=== PATIENT | male | born 2005 | race Two or more races ===

== ENCOUNTER 2024-08-06 22:10 | Emergency (ER) | payer OTHER ==
[~2024-08-06] VITALS: Ht 167.6 cm; Wt 81.6 kg
[2024-08-06] MEDS ORDERED: [UNRECOGNIZED DRUG - REMARK] (23:09)
[2024-08-06] MEDS ORDERED: ZYRTEC10 M3 PO (23:09)
[2024-08-07] MEDS ORDERED: HYOSCYAMINE SULFATE 0.125 MG TAB.SUBL SL STA (00:43)
[2024-08-07] MEDS ORDERED: LACTOBACILLUS ACIDOPHILUS 1 CAP CAP PO STA (00:43)
[2024-08-07] MEDS ORDERED: 0.9 % SODIUM CHLORIDE 1,000 ML IV ONE (00:45)
[2024-08-07] MEDS ORDERED: HYOSCYAMINE SULFATE 0.125 MG TAB.SUBL ONE (01:43)
[2024-08-07] MEDS ORDERED: LACTOBACILLUS ACIDOPHILUS 1 CAP CAP PO ONE (01:43)
[2024-08-07 03:00] LABS: HEMATOCRIT 42.3 % (39.0-48.0); HEMOGLOBIN 14.4 g/dL (13-16.00); MEAN CELL VOLUME 85.8 fL (80.0-100.00); MEAN CORPUSCULAR HEMOGLOBIN 29.2 pg (27.00-32.0); PLATELET COUNT 221 K/uL (150-450); RED BLOOD COUNT 4.93 M/uL (4.00-6.00); RED CELL DISTRIBUTION WIDTH 12.8 % (11.5-14.5)
[2024-08-07 03:17] LABS: CALCIUM 9.2 mg/dL (8.5-10.1); CREATININE SERUM 1.08 mg/dL (0.70-1.30); GFR 87.17; POTASSIUM 3.84 mEq/L (3.5-5.1)
[2024-08-07] MEDS ORDERED: OSELTAMIVIR PHOSPHATE 75 MG CAPSULE PO STA (06:03)
[2024-08-07] MEDS ORDERED: PHENAGIL TABLE1 EACH PO (06:13)
[2024-08-07] MEDS ORDERED: ORASEP SPRAY30 ML MM (06:13)
[2024-08-07] MEDS ORDERED: OSEL75CA PO (06:13)
[2024-08-07] MEDS ORDERED: OSELTAMIVIR PHOSPHATE 75 MG CAPSULE PO ONE (06:25)
[2024-08-07 06:30] LABS: PH,URINE 5.5 (5.0-8.0); URINE APPEARANCE Clear; URINE BILIRRUBIN Negative (NEGATIVE); URINE BLOOD Negative; URINE COLOR Yellow; URINE GLUCOSE Negative (NEGATIVE); URINE LEUKOCYTE Negative; URINE NITRATE Negative; URINE PROTEIN 30 (NEGATIVE); URINE UROBILINOGEN 0.2 E.U./dl
[2024-08-07 06:35] LABS: URINE BACTERIA 29.3 uL (0.0-1933); URINE EPITHELIAL CELLS 11.8 uL (0.0-38.8); URINE WBC 10.4 uL (0.0-23.2)
[2024-08-07 06:45] LABS: URINE CAST 0.29 uL (0.0-1.40); URINE KETONE 40 (NEGATIVE)
== END 2024-08-07 06:29 ==
LOC: EMR PED 22:13 → ER 22:13 → EMR PED 23:00
PROVIDERS: General Practice
DX: J10.1 Influenza due to other identified influenza virus with other respiratory manifestations (principal); Z20.822 Contact with and (suspected) exposure to COVID-19

== ENCOUNTER 2024-10-04 05:59 | Inpatient (IN) | payer OTHER ==
[~2024-10-04] VITALS: Ht 167.6 cm; Wt 81.8 kg
[~2024-10-04 05:59] MED LIST: ORASEP SPRAY30 ML MM; OSEL75CA PO; PHENAGIL TABLE1 EACH PO; ZYRTEC10 M3 PO; [UNRECOGNIZED DRUG - REMARK]
--- NOTE | 2024-10-04 06:22 | NUR ---
PTE ALERTA Y ORIENTADO X3 QUIEN REFIERE VENIR POR VOMITOS DESDE HACE 1 SEMANA
[2024-10-04] MEDS ORDERED: FAMOTIDINE/PF 20 MG/2 ML VIAL IV ONE (08:00)
[2024-10-04] MEDS ORDERED: ONDANSETRON HCL 2 MG/ML VIAL IV ONE (08:00)
[2024-10-04] MEDS ORDERED: 0.9 % SODIUM CHLORIDE 1,000 ML IV ONE (08:00)
[2024-10-04 08:19] LABS: HEMATOCRIT 45.2 % (39.0-48.0); HEMOGLOBIN 15.3 g/dL (13-16.00); MEAN CELL VOLUME 84.5 fL (80.0-100.00); MEAN CORPUSCULAR HEMOGLOBIN 28.7 pg (27.00-32.0); PLATELET COUNT 352 K/uL (150-450); RED BLOOD COUNT 5.35 M/uL (4.00-6.00); RED CELL DISTRIBUTION WIDTH 12.3 % (11.5-14.5)
[2024-10-04] MEDS ORDERED: DEXTROSE 5 %-0.45 % SOD CHLORD 1,000 ML IV SCH ×3 (08:30→14:00)
[2024-10-04 09:00] LABS: BILIRUBIN TOTAL 0.62 mg/dL (0.3-1.2); CALCIUM 9.4 mg/dL (8.5-10.1); CREATININE SERUM 1.08 mg/dL (0.70-1.30); GFR 87.17; GLOBULINA 4.3 G/DL (2.4-3.5); POTASSIUM 3.64 mEq/L (3.5-5.1); TOTAL PROTEIN 8.3 gm/dL (6.4-8.2)
--- NOTE | 2024-10-04 09:08 | NUR ---
EVALUADO PTE. POR PERRY. CASTRODAD. SE ORIENTA SOBRE TRATAMIENTO Y MEDICAMENTOS LOS CUALES SE ADM. MARINA ORDEN MEDICA, MUESTRAS TOMADAS Y SE ENVIAN AL LABORATORIO Y SE LUZ PTE. EN RADHA CON BARRANDAS ELEVADAS ACOMPANADO DE FAMILIAR.
[2024-10-04 09:15] LABS: C-REACTIVE PROTEIN 0.43 MG/DL (0.00-0.29)
[2024-10-04] MEDS ORDERED: KETOROLAC TROMETHAMINE 15 MG VIAL IU SCH (09:23)
[2024-10-04] MEDS ORDERED: 0.9 % SODIUM CHLORIDE 1,000 ML IV SCH (09:30)
--- NOTE | 2024-10-04 09:32 | NUR ---
PTE. REFIERE CONTINUA CON DOLOR PERRY. CASTRODA RE-EVALUA PTE. SE ORIENTA SOBRE TRATAMIENTO Y MEDICAMENTO EL CUAL SE ADM. MARINA ORDEN MEDICA.
--- NOTE | 2024-10-04 10:43 | NUR ---
SE ENVIA PTE. A CT SCAN.
[2024-10-04 11:41] LABS: PH,URINE 5.5 (5.0-8.0); URINE APPEARANCE Clear; URINE BILIRRUBIN Negative (NEGATIVE); URINE BLOOD Negative; URINE COLOR Yellow; URINE GLUCOSE Negative (NEGATIVE); URINE KETONE Negative (NEGATIVE); URINE LEUKOCYTE Negative; URINE NITRATE Negative; URINE PROTEIN Negative (NEGATIVE); URINE UROBILINOGEN 0.2 E.U./dl; URINE WBC 3.7 uL (0.0-23.2)
[2024-10-04] MEDS ORDERED: FAMOTIDINE/PF 20 MG/2 ML VIAL IV SCH (11:52)
[2024-10-04] MEDS ORDERED: KETOROLAC TROMETHAMINE 30 MG VIAL IV PRN (12:00)
[2024-10-04 12:22] LABS: URINE BACTERIA 3.6 uL (0.0-1933); URINE EPITHELIAL CELLS 1.2 uL (0.0-38.8); URINE RBC 0.7 uL (0.0-20.8)
[2024-10-04 12:55] VITALS: BP 107/72
[2024-10-04] MEDS ORDERED: ONDANSETRON HCL 4 MG in 0.9 % SODIUM CHLORIDE 50 ML IV SCH (13:00)
--- NOTE | 2024-10-04 14:00 | NUR ---
DRA. SINGH RE-EVALUA PTE. Y ADMITE A SERVICIO DE DR. CALVILLO. SE ORIENTA SOBRE TRATAMIENTO, MEDICAMENTOS Y ADMISION ORDENES DE ADMISION TOMADAS, FAMILIAR HACE ARREGLOS DE ADMISION. MUESTRAS TOMADAS Y SE ENVIAN AL LABORATORIO. DIETA RENETTA Y TOLERADA. PTE. REFIERE SE SIENTE MEJOR Y SE LUZ PTE. BAJO OBSERVACION POR CAMBIO.
[2024-10-04 16:15] VITALS: BP 97/68; O2SAT 98
[2024-10-04] MEDS ORDERED: KETOROLAC TROMETHAMINE 30 MG VIAL IV SCH (17:00)
[2024-10-04] MEDS ORDERED: PANTOPRAZOLE SODIUM 40 MG/VIAL VIAL IV SCH (21:00)
[2024-10-05] VITALS: BP 116/80; O2SAT 99
[2024-10-05 06:22] LABS: HEMATOCRIT 39.1 % (39.0-48.0); HEMOGLOBIN 13.5 g/dL (13-16.00); MEAN CELL VOLUME 84.1 fL (80.0-100.00); MEAN CORPUSCULAR HGB CONC 34.4 g/dl (32.0-36.0); PLATELET COUNT 218 K/uL (150-450); RED BLOOD COUNT 4.65 M/uL (4.00-6.00); RED CELL DISTRIBUTION WIDTH 12.7 % (11.5-14.5)
[2024-10-05 07:03] LABS: BILIRUBIN TOTAL 1.05 mg/dL (0.3-1.2); CALCIUM 8.1 mg/dL (8.5-10.1); CREATININE SERUM 0.94 mg/dL (0.70-1.30); GFR 102.31; POTASSIUM 3.35 mEq/L (3.5-5.1)
[2024-10-05 08:37] VITALS: BP 111/74; O2SAT 98
[2024-10-05] MEDS ORDERED: ACETAMINOPHEN 500 MG GEL..CAP PO SCH (09:00)
[2024-10-05] MEDS ORDERED: ONDANSETRON HCL 4 MG in 0.9 % SODIUM CHLORIDE 50 ML IV PRN (12:27)
[2024-10-05] MEDS ORDERED: ACETAMINOPHEN 500 MG GEL..CAP PO PRN (12:27)
[2024-10-05 17:31] VITALS: BP 130/81; O2SAT 100
[2024-10-06] VITALS: BP 124/80; O2SAT 100
[2024-10-06 06:11] LABS: HEMOGLOBIN 13.4 g/dL (13-16.00); MEAN CELL VOLUME 84.3 fL (80.0-100.00); MEAN CORPUSCULAR HEMOGLOBIN 28.9 pg (27.00-32.0); MEAN CORPUSCULAR HGB CONC 34.3 g/dl (32.0-36.0); PLATELET COUNT 215 K/uL (150-450); RED BLOOD COUNT 4.62 M/uL (4.00-6.00); RED CELL DISTRIBUTION WIDTH 12.4 % (11.5-14.5)
[2024-10-06 07:03] LABS: ALBUMIN 2.9 gm/dL (3.4-5.0); BILIRUBIN TOTAL 0.71 mg/dL (0.3-1.2); CALCIUM 8.4 mg/dL (8.5-10.1); CREATININE SERUM 0.76 mg/dL (0.70-1.30); GFR 130.76; GLOBULINA 2.9 G/DL (2.4-3.5); POTASSIUM 3.51 mEq/L (3.5-5.1); TOTAL PROTEIN 5.8 gm/dL (6.4-8.2)
[2024-10-06 07:07] LABS: C-REACTIVE PROTEIN 6.61 MG/DL (0.00-0.29)
[2024-10-06 08:25] VITALS: BP 107/73; O2SAT 98
[2024-10-06 16:30] VITALS: BP 110/80; O2SAT 99
[2024-10-07] VITALS: BP 112/74; O2SAT 98
[2024-10-07 07:47] LABS: MEAN CELL VOLUME 84.1 fL (80.0-100.00); MEAN CORPUSCULAR HEMOGLOBIN 28.7 pg (27.00-32.0); MEAN CORPUSCULAR HGB CONC 34.1 g/dl (32.0-36.0); PLATELET COUNT 260 K/uL (150-450); RED BLOOD COUNT 4.87 M/uL (4.00-6.00); RED CELL DISTRIBUTION WIDTH 12.7 % (11.5-14.5)
[2024-10-07 08:08] VITALS: BP 122/86; O2SAT 99
[2024-10-07 08:21] LABS: ALBUMIN 3.4 gm/dL (3.4-5.0); BILIRUBIN TOTAL 0.9 mg/dL (0.3-1.2); CALCIUM 8.7 mg/dL (8.5-10.1); CREATININE SERUM 0.8 mg/dL (0.70-1.30); GFR 123.24; GLOBULINA 3.2 G/DL (2.4-3.5); POTASSIUM 3.76 mEq/L (3.5-5.1); TOTAL PROTEIN 6.6 gm/dL (6.4-8.2)
[2024-10-07 08:26] LABS: C-REACTIVE PROTEIN 3.14 MG/DL (0.00-0.29)
[2024-10-07] MEDS ORDERED: INTESTINEX680 M1 PO (09:14)
== END 2024-10-07 10:16 | disposition home or self-care (01) | DRG 392 ==
LOC: ER 05:59 → EMR PED 06:01 → ER 06:01 → SEC-K 13:01 → PED 13:01
PROVIDERS: General Practice; Pediatrics; ADMIT Emergency Medicine; ATTEND Emergency Medicine
PROC: BW21ZZZ Computerized Tomography (CT Scan) of Abdomen and Pelvis (ICD-10-PCS; principal; 2024-10-04)
DX: K52.9 Noninfective gastroenteritis and colitis, unspecified (principal)